=== PATIENT | female | born 1980 | race Caucasian/White ===

== ENCOUNTER 2017-10-05 11:38 | Emergency (ER) | payer BC, SELFPAY ==
[2017-10-05 11:42] VITALS: BP 147/85; PULSE 98; RESP 17; TEMP 36.7; O2SAT 99
--- NOTE | 2017-10-05 11:56 | DI.REPORT_ITS ---
SYMPTOMS/DIAGNOSIS: LT LOWER PAIN, AXILLARY LINE PA CHEST AND LEFT RIBS: PA view and four additional views of the left ribs were obtained. The heart is not enlarged. The lungs are clear. No abnormality is seen involving the ribs. No evidence of pneumothorax or pleural effusion on the frontal film. CONCLUSION: Negative exam.
--- NOTE | 2017-10-05 11:58 | ED.GENADUL_ITS ---
Disposition Clinical Impression: Left paraspinous muscular spasm Disposition: HOME Condition: Good Additional Instructions: Home to rest. May use ibuprofen 600-800 mg every 8 hours, with food, as needed for pain OR may use Aleve 500mg every 12 hours as needed for pain. May use Tylenol 650-975 mg every 4-6 hours, as needed for pain. Total daily dose should not exceed 2000 mg. May use methocarbamol, as prescribed, as needed for muscular pain and spasm. Off work as written. Return to the emergency department if you develop a fever, rash, worsening discomfort or any other acute concerns. Prescriptions: Methocarbamol 500 - 1,000 mg PO Q6H PRN PRN #14 tablet PRN Reason: Muscular pain and spasm Forms: Work Release Medical Decision Making - Lab Data Laboratory Results - last 24 hr 10/05/17 12:20 Urine Color Yellow Urine Clarity Clear Urine pH 5.5 Ur Specific [place] 1.015 Urine Protein Negative Urine Ketones Negative Urine Blood Trace-intact H Urine Nitrite Negative Urine Bilirubin Negative Urine Urobilinogen 0.2 Ur Leukocyte Esterase Negative Urine Glucose Negative Results reviewed for labs ordered during visit: Yes - Radiology Data Radiology results: image reviewed - Medical Decision Making 37-year-old female presents with 3 days of left chest discomfort that she believes began after having a night tear. She is afebrile, well-appearing, in some distress. Differential diagnosis includes muscular skeletal strain, occult rib fracture, pneumothorax, underlying infiltrate or UTI versus renal colic. The patient's pain improved following administration of ketorolac. Patient did have a brief vagal episode was moderated with Zofran and recumbent position. Referred for x-ray and urinalysis: Trace blood present on urinalysis. X-ray without acute finding. Patient's pain nearly completely resolved following administration of ketorolac. I feel it is mostly muscular spasm and discomfort, will trial methocarbamol to be used if needed as an outpatient. Discussed with her home management as well as return precautions. History of Present Illness - General Chief complaint: Nk/Back Pain Stated complaint: BACK PAIN Time Seen by Provider: 10/05/17 11:44 Source: patient, family, RN notes reviewed Mode of arrival: ambulatory Limitations: no limitations - History of Present Illness Initial comments: Left back pain: 37-year-old female presents from home with her partner. She states that she has had 3 days of constant, aching, left-sided back pain that is worse with movement. She states it may have begun after having an night tear in which she woke with pain 3 days ago. It is nonradiating, minimally improved with home medications. She does not have associated changes to urine, fever, or rash. No cough or difficulty breathing. - Related Data Fluoxetine HCl [Prozac] 40 mg PO QAM 12/28/16 Ibuprofen 400 mg PO PRN PRN 12/28/16 Hydroxyzine HCl 1 tab PO TID 10/05/17 Methocarbamol 500 - 1,000 mg PO Q6H PRN PRN #14 tablet 10/05/17 Allergies Allergy/AdvReac Type Severity Reaction Status Date / Time Penicillins AdvReac Unverified 05/15/17 06:56 Review of Systems Other: 8 systems reviewed, otherwise negative Past Medical History - Past Medical History Medical history: asthma - Social History Alcohol use: none Drug use: none Course Vital Signs - 24 hr 10/05/17 11:42 Temperature 36.7 C Pulse 98 H Respiratory 17 Rate Blood Pressure 147/85 Pulse Oximetry 99
[2017-10-05] MEDS: Ketorolac 60 MG/2 ML VIAL IM (12:18)
[2017-10-05] MEDS: Ondansetron O.D.T. 4 MG TABEF PO (12:40)
[2017-10-05 12:48] LABS: Bilirubin Negative (Negative); Blood Trace-intact (Negative); Clarity Clear; Glucose Negative (Negative); Ketones Negative (Negative); Leukocyte Esterase Negative (Negative); Nitrite Negative (Negative); Specific Gravity 1.015 (1.005-1.025); Urobilinogen 0.2 EU/dL (Up TO 0.2); pH 5.5 (5-8)
[2017-10-05 13:29] LABS: Bacteria Negative HPF (Negative); C & S Indicated? No; Casts Negative LPF (Negative); Crystals Negative HPF (Negative); Mucus Negative (Negative); RBC 0-2 (0-2); WBC Negative HPF (0-5)
[2017-10-05 13:32] LABS: Epithelial Cells Many HPF (Negative)
== END 2017-10-05 14:04 | disposition home or self-care (01) ==
PROVIDERS: Emergency Provider Emergency Medicine
DX: M62.830 Muscle spasm of back (principal)
CPT/HCPCS: 71101; 96372; 99284; 81003; 81015; 99281; J1885